=== PATIENT | male | born 1930 | race Caucasian/White ===

== ENCOUNTER 2016-11-23 19:48 | Inpatient (IN) | payer OTHER, MEDICARE ==
[2016-11-23 19:52] VITALS: BP 174/80; PULSE 80; RESP 18; TEMP 98.2; O2SAT 89
[2016-11-23 20:00] VITALS: O2SAT 95
[2016-11-23] MEDS ORDERED: SODIUM CHLORIDE 0.9% FLUSH 5 ML FLUSH IVF PRN (20:00)
--- NOTE | 2016-11-23 20:00 | PD ---
HPI Chief Complaint: Foreign Body Time Seen by Provider: 19:54 Travel History International Travel<30 days: No Contact w/Intl Traveler<30days: No Traveled to known affect area: No History of Present Illness HPI The patient is a 86-year-old male who presents to the emergency department via EMS after choking episode with hypoxia. According to EMS the patient was eating chocolate ground beef at home earlier today, when he developed choking. The family tried to perform the Heimlich maneuver on the patient unsuccessfully. EMS states when they arrived the patient's oxygen saturation was in the 70s and he was coughing. EMS states the patient's coughing has improved, however, he had to be placed on a nonrebreather prior to arrival secondary to hypoxia. The patient does have a history of dementia according to EMS. The patient is Anguillan-speaking and the history is obtained from a Anguillan -speaking emergency medicine die maintenance technician in the emergency department. The patient does complain of shortness of breath, denies any chest pain, nausea, vomiting, or abdominal pain. However, according to the EMT, the patient is a poor historian. [facility] Past Medical History Narrative Medical History of dementia Social History Tobacco Use: No Allergies-Medications (Allergen,Severity, Reaction): Coded Allergies: No Known Allergies (Unverified , 11/23/16) Reported Meds & Prescriptions Reported Meds & Active Scripts Active Reported Citalopram (Citalopram Hydrobromide) 20 Mg Tab 20 Mg PO DAILY Risperidone 1 Mg Tab 1 Mg PO DAILY Levothyroxine (Levothyroxine Sodium) 88 Mcg Tab 88 Mcg PO DAILY Warfarin 4 Mg Tab 4 Mg PO DAILY Metformin (Metformin HCl) 1,000 Mg Tab 1,000 Mg PO BIDPC With meals Metoprolol Tartrate 25 Mg Tab 25 Mg PO BID Namenda (Memantine) 10 Mg Tab 10 Mg PO BID Donepezil Hydrochloride 5 Mg Tab 10 Mg PO DAILY Review of Systems ROS Limitations: Clinical Condition, Poor Historian, Other: (history of dementia) Except as stated in HPI: all other systems reviewed are Neg Cardiovascular: No: Chest Pain or Discomfort Respiratory: Positive: Shortness of Breath Gastrointestinal: No: Nausea, Vomiting, Abdominal Pain Physical Exam Narrative GENERAL: Awake, alert, 86-year-old male who appears his stated age and does speak Anguillan to the ENT who translates. SKIN: Warm and dry. HEAD: Atraumatic. Normocephalic. EYES: Pupils equal and round. Pupils are 2 mm bilateral. ENT: No nasal bleeding or discharge. No visible blood in the posterior pharynx , however, unable to visualize the complete uvula. NECK: Trachea midline. No JVD. CARDIOVASCULAR: Regular rate and rhythm. No murmur appreciated. RESPIRATORY: Mild tachypnea with a respiratory rate of 22. Diminished breath sounds in the right and left face. GASTROINTESTINAL: Abdomen soft, slightly distended, non-tender. MUSCULOSKELETAL: No obvious deformities. No clubbing. No cyanosis. No edema. NEUROLOGICAL: Awake and alert. No obvious cranial nerve deficits. Motor grossly within normal limits. Normal speech. Patient does answer questions to the ENT, but does not know the current year, president and the [place], or location. PSYCHIATRIC: Unable to assess. Data Data Last Documented VS Vital Signs Date Time Temp Pulse Resp B/P Pulse Ox O2 Delivery O2 Flow Rate FiO2 11/23/16 20:11 98 Nasal Cannula 4 11/23/16 20:10 72 16 160/81 11/23/16 19:52 98.2 Orders Complete Blood Count With Diff (11/23/16 19:54) Comprehensive Metabolic Panel (11/23/16 19:54) B-Type Natriuretic Peptide (11/23/16 19:54) Act Partial Throm Time (Ptt) (11/23/16 19:54) Prothrombin Time / Inr (Pt) (11/23/16 19:54) Magnesium (Mg) (11/23/16 19:54) Ckmb (Isoenzyme) Profile (11/23/16 19:54) Troponin I (11/23/16 19:54) Arterial Blood Gas (Abg) (11/23/16 19:54) Blood Culture (11/23/16 19:54) Iv Access Insert/Monitor (11/23/16 19:54) Electrocardiogram (11/23/16 19:54) Ecg Monitoring (11/23/16 19:54) Oximetry (11/23/16 19:54) Oxygen Administration (11/23/16 19:54) Chest, Single Ap (11/23/16 19:54) Sodium Chloride 0.9% Flush (Ns Flush) (11/23/16 20:00) Lactic Acid (11/23/16 19:54) Ceftriaxone Inj (Rocephin Inj) (11/23/16 20:45) Azithromycin Inj (Zithromax Inj) (11/23/16 20:45) Furosemide Inj (Lasix Inj) (11/23/16 21:30) Admit Order (Ed Use Only) (11/23/16 21:54) Labs Laboratory Tests Test 11/23/16 11/23/16 20:02 20:15 Blood Gas Puncture Site RT RADIAL Blood Gas Patient Temperature 98.6 Blood Gas HCO3 21 mmol/L Blood Gas Base Excess -4.3 mmol/L Blood Gas Oxygen Saturation 91 % Arterial Blood pH 7.32 Arterial Blood Partial 41 mmHg Pressure CO2 Arterial Blood Partial 79 mmHG Pressure O2 Arterial Blood Oxygen Content 12.5 Vol % Arterial Blood 2.4 % Carboxyhemoglobin Arterial Blood Methemoglobin 1.5 % Blood Gas Hemoglobin 9.7 G/DL Oxygen Delivery Device NASAL CANNULA Blood Gas Liter Flow 4 L/M White Blood Count 9.7 TH/MM3 Red Blood Count 3.91 MIL/MM3 Hemoglobin 9.6 GM/DL Hematocrit 30.5 % Mean Corpuscular Volume 78.0 FL Mean Corpuscular Hemoglobin 24.5 PG Mean Corpuscular Hemoglobin 31.4 % Concent Red Cell Distribution Width 17.7 % Platelet Count 229 TH/MM3 Mean Platelet Volume 9.4 FL Neutrophils (%) (Auto) 74.7 % Lymphocytes (%) (Auto) 11.5 % Monocytes (%) (Auto) 12.0 % Eosinophils (%) (Auto) 1.3 % Basophils (%) (Auto) 0.5 % Neutrophils # (Auto) 7.2 TH/MM3 Lymphocytes # (Auto) 1.1 TH/MM3 Monocytes # (Auto) 1.2 TH/MM3 Eosinophils # (Auto) 0.1 TH/MM3 Basophils # (Auto) 0.1 TH/MM3 CBC Comment AUTO DIFF Differential Comment AUTO DIFF CONFIRMED Tear Drop Cells 1+ Ovalocytes 1+ Acanthocytes OCC Prothrombin Time 20.8 SEC Prothromb Time International 1.8 RATIO Ratio Activated Partial 33.1 SEC Thromboplast Time Sodium Level 136 MEQ/L Potassium Level 5.2 MEQ/L Chloride Level 103 MEQ/L Carbon Dioxide Level 23.9 MEQ/L Anion Gap 9 MEQ/L Blood Urea Nitrogen 43 MG/DL Creatinine 1.40 MG/DL Estimat Glomerular Filtration 48 ML/MIN Rate Random Glucose 162 MG/DL Lactic Acid Level 4.0 mmol/L Calcium Level 8.6 MG/DL Magnesium Level 1.6 MG/DL Total Bilirubin 0.5 MG/DL Aspartate Amino Transf 28 U/L (AST/SGOT) Alanine Aminotransferase 22 U/L (ALT/SGPT) Alkaline Phosphatase 202 U/L Total Creatine Kinase 78 U/L Troponin I 0.02 NG/ML B-Type Natriuretic Peptide 1437 PG/ML Total Protein 7.7 GM/DL Albumin 3.4 GM/DL MDM Medical Decision Making Medical Screen Exam Complete: Yes Emergency Medical Condition: Yes Medical Record Reviewed: Yes Interpretation(s) EKG reveals atrial fibrillation with a rate of 79. S1Q3. Nonspecific ST changes. Laboratory Tests Test 11/23/16 11/23/16 20:02 20:15 Blood Gas Puncture Site RT RADIAL Blood Gas Patient Temperature 98.6 Blood Gas HCO3 21 mmol/L Blood Gas Base Excess -4.3 mmol/L Blood Gas Oxygen Saturation 91 % Arterial Blood pH 7.32 Arterial Blood Partial 41 mmHg Pressure CO2 Arterial Blood Partial 79 mmHG Pressure O2 Arterial Blood Oxygen Content 12.5 Vol % Arterial Blood 2.4 % Carboxyhemoglobin Arterial Blood Methemoglobin 1.5 % Blood Gas Hemoglobin 9.7 G/DL Oxygen Delivery Device NASAL CANNULA Blood Gas Liter Flow 4 L/M White Blood Count 9.7 TH/MM3 Red Blood Count 3.91 MIL/MM3 Hemoglobin 9.6 GM/DL Hematocrit 30.5 % Mean Corpuscular Volume 78.0 FL Mean Corpuscular Hemoglobin 24.5 PG Mean Corpuscular Hemoglobin 31.4 % Concent Red Cell Distribution Width 17.7 % Platelet Count 229 TH/MM3 Mean Platelet Volume 9.4 FL Neutrophils (%) (Auto) 74.7 % Lymphocytes (%) (Auto) 11.5 % Monocytes (%) (Auto) 12.0 % Eosinophils (%) (Auto) 1.3 % Basophils (%) (Auto) 0.5 % Neutrophils # (Auto) 7.2 TH/MM3 Lymphocytes # (Auto) 1.1 TH/MM3 Monocytes # (Auto) 1.2 TH/MM3 Eosinophils # (Auto) 0.1 TH/MM3 Basophils # (Auto) 0.1 TH/MM3 CBC Comment AUTO DIFF Differential Comment AUTO DIFF CONFIRMED Tear Drop Cells 1+ Ovalocytes 1+ Acanthocytes OCC Prothrombin Time 20.8 SEC Prothromb Time International 1.8 RATIO Ratio Activated Partial 33.1 SEC Thromboplast Time Sodium Level 136 MEQ/L Potassium Level 5.2 MEQ/L Chloride Level 103 MEQ/L Carbon Dioxide Level 23.9 MEQ/L Anion Gap 9 MEQ/L Blood Urea Nitrogen 43 MG/DL Creatinine 1.40 MG/DL Estimat Glomerular Filtration 48 ML/MIN Rate Random Glucose 162 MG/DL Lactic Acid Level 4.0 mmol/L Calcium Level 8.6 MG/DL Magnesium Level 1.6 MG/DL Total Bilirubin 0.5 MG/DL Aspartate Amino Transf 28 U/L (AST/SGOT) Alanine Aminotransferase 22 U/L (ALT/SGPT) Alkaline Phosphatase 202 U/L Total Creatine Kinase 78 U/L Troponin I 0.02 NG/ML B-Type Natriuretic Peptide 1437 PG/ML Total Protein 7.7 GM/DL Albumin 3.4 GM/DL Last Impressions Chest X-Ray 11/23/161953 Signed Impressions: Service Date/Time: Wednesday, November 23, 2016 20:06 - CONCLUSION: Mild left base consolidation and suspected small effusion. Willie Fernandes MD Differential Diagnosis Differential diagnosis includes aspiration pneumonia, aspiration, esophageal food bolus impaction, pneumonia, congestive heart failure, pleural effusion, pulmonary embolism, acute coronary syndrome, sepsis. Narrative Course IV was established, labs are drawn and sent, and the patient was placed on cardiac telemetry monitoring and continuous pulse oximetry monitoring. EKG was ordered and interpreted. Chest x-ray was obtained. Room air ABG was obtained. The patient was then placed on oxygen. Blood cultures and lactic acid were sent to lab. The patient's daughter and arrived, is able to obtain a better history from the family. The patient does have a history of dementia and congestive heart failure after he had open-heart surgery. The patient was eating earlier tonight when he appeared to choke and cough. The patient's primary physician is Dr. Ronald Alfonso. Chest x-ray reveals questionable consolidation as well as pleural effusion. ABG revealed a PO2 of 79 on 4 L, patient is not on oxygen at home according to the family. The patient did appear much more comfortable on oxygen, sitting upright, and his coughing had resolved. Family does state the patient is on antibiotic for his recent coughing. The patient's BNP is elevated greater than 1400, lactic acid is elevated at 4.0 , may be secondary to hypoxia. Patient was administered Lasix 40 mg intravenously, will be admitted for congestive heart failure, hypoxia, and aspiration. The patient has [employer], is followed by Dr. Alfonso, [facility] Physician Communication Physician Communication [facility] as patient has [employer]. I discussed the patient with Dr. Cartagena who agrees with admission. Diagnosis Primary Impression: Congestive heart failure Qualified Code: I50.9 - Acute on chronic congestive heart failure, unspecified congestive heart failure type Additional Impressions: Aspiration into airway Qualified Code: T17.908A - Aspiration into airway, initial encounter Hypoxia Admitting Information Admitting Physician Requests: Admit Condition: Stable Attila Marie MD Nov 23, 2016 20:00
[2016-11-23 20:10] VITALS: BP 160/81; PULSE 72; RESP 16; O2SAT 98
[2016-11-23 20:11] VITALS: O2SAT 98
[2016-11-23 20:13] LABS: BLOOD GAS BASE EXCESS -4.3 mmol/L (-2-2); BLOOD GAS CARBOXYHEMOGLOBIN 2.4 % (0-4); BLOOD GAS HCO3 21 mmol/L (22-26); BLOOD GAS METHEMOGLOBIN 1.5 % (0-2); BLOOD GAS O2 HGB SATURATION 91 % (90-100); BLOOD GAS OXYGEN CONTENT 12.5 Vol % (12.0-20.0); BLOOD GAS PCO2 41 mmHg (38-42); BLOOD GAS PO2 79 mmHG (61-120); BLOOD GAS TOTAL HGB 9.7 G/DL (12.0-16.0); CRITICAL VALUE NO; DRAW SITE RT RADIAL; LITER FLOW 4 L/M; NUMBER OF ARTERIAL PUNCTURES 1; OXYGEN DEVICE NASAL CANNULA; STAT YES; TEMP CORR TO 98.6; ULNAR PULSE PRESENT
--- NOTE | 2016-11-23 20:28 | RADRPT ---
EXAM DATE/TIME: 11/23/2016 20:06 [facility] COMPARISON: No previous studies available for comparison. INDICATIONS : Shortness of breath MEDICAL HISTORY : None. SURGICAL HISTORY : CABG. ENCOUNTER: Initial ACUITY: 1 day PAIN SCORE: Non-responsive. LOCATION: Bilateral chest FINDINGS: Mild consolidation seen left lung base. There's probably a small left pleural effusion. Right lung cl ear. No pneumothorax. Heart size upper limits of normal. Patient has had previous median sternotomy. CONCLUSION: Mild left base consolidation and suspected small effusion. Willie Fernandes MD on November 23, 2016 at 20:26 Board Certified Radiologist. This report was verified electronically.
[2016-11-23 20:29] LABS: AUTOMATED NEUTROPHIL # 7.2 TH/MM3 (1.8-7.7); BASOPHIL # 0.1 TH/MM3 (0-0.2); BASOPHIL % 0.5 % (0.0-2.0); EOSINOPHIL # 0.1 TH/MM3 (0-0.4); EOSINOPHIL % 1.3 % (0.0-4.0); HEMATOCRIT 30.5 % (39.0-51.0); LYMPH % 11.5 % (9.0-44.0); LYMPHOCYTE # 1.1 TH/MM3 (1.0-4.8); MEAN CORPUSCULAR HEMOGLOBIN 24.5 PG (27.0-34.0); MEAN CORPUSCULAR HGB CONC 31.4 % (32.0-36.0); NEUT % 74.7 % (16.0-70.0); PLATELET COUNT 229 TH/MM3 (150-450); RED BLOOD COUNT 3.91 MIL/MM3 (4.50-5.90); RED CELL DISTRIBUTION WIDTH 17.7 % (11.6-17.2); WHITE BLOOD COUNT 9.7 TH/MM3 (4.0-11.0)
[2016-11-23 20:30] LABS: HEMO FLAGS AUTO DIFF
[2016-11-23] MEDS ORDERED: AZITHROMYCIN INJ 500 MG in SODIUM CHLOR 0.9% 250 ML INJ 250 ML IV ONE (20:45)
[2016-11-23] MEDS ORDERED: cefTRIAXone INJ 1,000 MG in SODIUM CHLORIDE 0.9% INJ 100 ML IV ONE (20:45)
[2016-11-23 20:54] LABS: APTT (PATIENT) 33.1 SEC (24.3-30.1); INTERNATIONAL NORMALIZED RATIO 1.8 RATIO; PROTHROMBIN TIME - PATIENT 20.8 SEC (9.8-11.6)
[2016-11-23 21:02] LABS: ALKALINE PHOSPHATASE 202 U/L (45-117); ALT (GPT) 22 U/L (12-78); ANION GAP 9 MEQ/L (5-15); AST (GOT) 28 U/L (15-37); BICARBONATE 23.9 MEQ/L (21.0-32.0); BLOOD UREA NITROGEN 43 MG/DL (7-18); CHLORIDE 103 MEQ/L (98-107); GLOMERULAR FILTRATION RATE 48 ML/MIN (>89); MAGNESIUM 1.6 MG/DL (1.5-2.5); POTASSIUM 5.2 MEQ/L (3.5-5.1); SODIUM (NA) 136 MEQ/L (136-145); TOTAL BILIRUBIN ADULT 0.5 MG/DL (0.2-1.0)
[2016-11-23 21:04] LABS: CREATINE KINASE 78 U/L (39-308)
[2016-11-23 21:23] LABS: ACANTHOCYTES OCC (NORMAL)
[2016-11-23 21:24] LABS: OVALOCYTES 1+ (NORMAL); SCAN/DIFF AUTO DIFF CONFIRMED; TEARDROP RBCS 1+ (NORMAL)
[2016-11-23] MEDS ORDERED: FUROSEMIDE 40 MG/4 ML VIAL IV PUSH ONE (21:30)
[2016-11-23] MEDS ORDERED: LEVO88TA2 PO (21:31)
[2016-11-23] MEDS ORDERED: RISP1TAB2 PO (21:31)
[2016-11-23] MEDS ORDERED: DONE1TAB90 PO (21:31)
[2016-11-23] MEDS ORDERED: METO25TA3 PO (21:31)
[2016-11-23] MEDS ORDERED: METF1000 PO (21:31)
[2016-11-23] MEDS ORDERED: CITA20TA4 PO (21:31)
[2016-11-23] MEDS ORDERED: NAME10TA PO (21:31)
[2016-11-23] MEDS ORDERED: WARF-20 PO (21:31)
[2016-11-23 22:18] VITALS: BP 155/80; PULSE 80; RESP 18; O2SAT 100
--- NOTE | 2016-11-23 22:24 | EKG ---
Date Performed: 11/23/2016 Time Performed: 20:07:13 PTAGE: 86 years EKG: ATRIAL FIBRILLATION INDETERMINATE AXIS PATTERN CONSISTENT WITH PULMONARY DISEASE MODERATE S T DEPRESSION ABNORMAL ECG NO PREVIOUS TRACING DOCTOR: Guido Crane Interpretating Date/Time 11/23/2016 22:21:47
[2016-11-23] MEDS ORDERED: NALOXONE HCL 0.4 MG/ML AMP IV PRN (22:30)
[2016-11-23] MEDS ORDERED: SODIUM CHLORIDE 0.9% FLUSH 5 ML FLUSH FLUSH PRN (22:30)
[2016-11-23] MEDS ORDERED: ONDANSETRON HCL 4 MG/2 ML VIAL IVP PRN (22:30)
[2016-11-23 23:45] VITALS: BP 148/72; PULSE 72; RESP 18; O2SAT 100
[2016-11-24] VITALS (10 sets, daily range): BP systolic 105–158; BP diastolic 54–93; PULSE 65–112; RESP 18–20; TEMP 96.2–97.2; O2SAT 91–98
[2016-11-24 02:55] LABS: AUTOMATED NEUTROPHIL # 7.5 TH/MM3 (1.8-7.7); BASOPHIL # 0.1 TH/MM3 (0-0.2); BASOPHIL % 0.6 % (0.0-2.0); EOSINOPHIL % 0.3 % (0.0-4.0); HEMATOCRIT 29.4 % (39.0-51.0); LYMPH % 7.7 % (9.0-44.0); LYMPHOCYTE # 0.7 TH/MM3 (1.0-4.8); MEAN CELL VOLUME 76.9 FL (80.0-100.0); MEAN CORPUSCULAR HEMOGLOBIN 24.6 PG (27.0-34.0); MONO % 10.9 % (0.0-8.0); NEUT % 80.5 % (16.0-70.0); PLATELET COUNT 198 TH/MM3 (150-450); RED BLOOD COUNT 3.82 MIL/MM3 (4.50-5.90); RED CELL DISTRIBUTION WIDTH 17.4 % (11.6-17.2); WHITE BLOOD COUNT 9.4 TH/MM3 (4.0-11.0)
[2016-11-24 02:56] LABS: HEMO FLAGS AUTO DIFF
--- NOTE | 2016-11-24 03:07 | HHI.HP ---
[facility] Service [facility] Primary Care Physician Ronald Alfonso MD (Paul) Admission Diagnosis congestive heart failure, hypoxia, lactic acidosis Diagnoses: Chief Complaint: not able to give specific complaints Travel History International Travel<30 Days: No Contact w/Intl Traveler <30 Da: No Traveled to Known Affected Are: No History of Present Illness History from ER physician communication, and review of medical records. Patient is elderly gentleman with baseline dementia. Patient was brought in by from EMS after having had choking episode. There was also reported hypoxia. The family tried to perform the Heimlich maneuver. Per ER report, EMS stated to them that patient's O2 sat was in the 70s and he was coughing a lot upon their arrival. This cough had improved and he was placed on nonrebreather prior to arrival to ER. Patient is Arabic-speaking and also have dementia. History from patient himself is thus limited. However, in the emergency room, with the investigative reporter, patient did complain of shortness of breath. He however denied any chest pains/nausea/vomiting/ abdominal pains. Similarly, when I used collection manager and ask patient regarding his symptoms , patient denies any chest pain/nausea/vomiting/diarrhea/shortness of breath. He denies any abdominal pains. Denies any blood in his stool or urine. Review of Systems ROS Limitations: Poor Historian Except as stated in HPI: all other systems reviewed are Neg Review of system is somewhat unreliable since patient does have dementia and seems to answer no to all questions Past Family Social History Past Medical History Dementia Diabetes Chronic anticoagulation on Coumadin Hypothyroidism Parkinson's likelywith noted resting tremors Possible atrial fibrillationbased on his medications list Past Surgical History Unknown. Reported Medications Patient's medications listed in EMRreviewed Allergies: Coded Allergies: No Known Allergies (Unverified , 11/23/16) Family History Unknown. Social History Per EMR: No history of tobacco abuse/alcohol abuse/drug abuse. Physical Exam Vital Signs Vital Signs Date Time Temp Pulse Resp B/P Pulse Ox O2 Delivery O2 Flow Rate FiO2 11/24/16 00:45 66 2/23/17 00:32 72 11/24/16 00:24 97.2 112 18 133/82 91 11/23/16 23:45 72 18 148/72 100 11/23/16 22:18 80 18 155/80 100 11/23/16 20:11 98 Nasal Cannula 4 11/23/16 20:11 98 Nasal Cannula 4 11/23/16 20:10 72 16 160/81 98 Nasal Cannula 4 11/23/16 20:04 98 94 11/23/16 20:00 95 Nasal Cannula 4.00 11/23/16 19:52 98.2 80 18 174/80 89 Physical Exam GENERAL: This is an elderly gentleman, not in acute distress. Has a blank stare. Noted resting tremors and intention tremors. SKIN: No rashes, ecchymoses or lesions. Cool and dry. HEAD: Atraumatic. Normocephalic. No temporal or scalp tenderness. EYES: No scleral icterus. No injection or drainage. ENT: Nose without bleeding, purulent drainage or septal hematoma. Airway patent. NECK: Trachea midline. No JVD CARDIOVASCULAR: Regular rate and rhythm without murmurs, gallops, or rubs. RESPIRATORY: Clear to auscultation. Breath sounds equal bilaterally. No wheezes , rales, or rhonchi. GASTROINTESTINAL: Abdomen soft, non-tender, nondistended. No guarding. MUSCULOSKELETAL: Extremities without clubbing, cyanosis, or edema. No calf tenderness. NEUROLOGICAL: Awake, but seems confused, has a blank stare and does not comprehend the situation. Moving all 4 limbs. No focal motor deficit. Normal speech. Laboratory Laboratory Tests Test 11/23/16 11/23/16 11/24/16 20:02 20:15 02:38 Blood Gas Puncture Site RT RADIAL Blood Gas Patient Temperature 98.6 Blood Gas HCO3 21 Blood Gas Base Excess -4.3 Blood Gas Oxygen Saturation 91 Arterial Blood pH 7.32 Arterial Blood Partial 41 Pressure CO2 Arterial Blood Partial 79 Pressure O2 Arterial Blood Oxygen Content 12.5 Arterial Blood 2.4 Carboxyhemoglobin Arterial Blood Methemoglobin 1.5 Blood Gas Hemoglobin 9.7 Oxygen Delivery Device NASAL CANNULA Blood Gas Liter Flow 4 White Blood Count 9.7 9.4 Red Blood Count 3.91 3.82 Hemoglobin 9.6 9.4 Hematocrit 30.5 29.4 Mean Corpuscular Volume 78.0 76.9 Mean Corpuscular Hemoglobin 24.5 24.6 Mean Corpuscular Hemoglobin 31.4 32.0 Concent Red Cell Distribution Width 17.7 17.4 Platelet Count 229 198 Mean Platelet Volume 9.4 8.9 Neutrophils (%) (Auto) 74.7 80.5 Lymphocytes (%) (Auto) 11.5 7.7 Monocytes (%) (Auto) 12.0 10.9 Eosinophils (%) (Auto) 1.3 0.3 Basophils (%) (Auto) 0.5 0.6 Neutrophils # (Auto) 7.2 7.5 Lymphocytes # (Auto) 1.1 0.7 Monocytes # (Auto) 1.2 1.0 Eosinophils # (Auto) 0.1 0.0 Basophils # (Auto) 0.1 0.1 CBC Comment AUTO DIFF AUTO DIFF Differential Comment AUTO DIFF CONFIRMED Tear Drop Cells 1+ Ovalocytes 1+ Acanthocytes OCC Prothrombin Time 20.8 Prothromb Time International 1.8 Ratio Activated Partial 33.1 Thromboplast Time Sodium Level 136 Potassium Level 5.2 Chloride Level 103 Carbon Dioxide Level 23.9 Anion Gap 9 Blood Urea Nitrogen 43 Creatinine 1.40 Estimat Glomerular Filtration 48 Rate Random Glucose 162 Lactic Acid Level 4.0 Calcium Level 8.6 Magnesium Level 1.6 Total Bilirubin 0.5 Aspartate Amino Transf 28 (AST/SGOT) Alanine Aminotransferase 22 (ALT/SGPT) Alkaline Phosphatase 202 Total Creatine Kinase 78 Troponin I 0.02 B-Type Natriuretic Peptide 1437 Total Protein 7.7 Albumin 3.4 Date/Time Procedure Status Source Growth 11/23/16 20:15 Aerobic Blood Culture Received Blood Peripheral Pending 11/23/16 20:15 Anaerobic Blood Culture Received Blood Peripheral Pending Result Diagram: 11/24/16 0238 11/23/162014 Imaging Last 48 hours Impressions Chest X-Ray 11/23/161953 Signed Impressions: Service Date/Time: Wednesday, November 23, 2016 20:06 - CONCLUSION: Mild left base consolidation and suspected small effusion. Willie Fernandes MD Assessment and Plan Assessment and Plan Impression: Witnessed choking episodeHeimlich maneuver performed by family members. Hypoxia upon EMS arrival with coughing episodes. Resolved by time of arrival to ER. Pneumoniawith left pleural effusions Elevated BNP Lactic acid acidosis Subtherapeutic INR Dementia Diabetes Chronic anticoagulation on Coumadin Hypothyroidism Parkinson's likelywith noted resting tremors Possible atrial fibrillationbased on his medications list Plan: Oxygen supplementation. Patient received Rocephin and azithromycin in ER. Will continue same. Echocardiogram in a.m. Serial cardiac enzymes and EKGs. We'll repeat a lactic acid level in a.m. Likely this is due to heart failure. Patient's abdomen is benign on exam. Patient is not complaining of any pain either. Swallow evaluation. Nothing by mouth. Continue home dose of Coumadin. We'll use Lovenox therapeutic dose to overlap. Will need more collateral information from family members. DVT prophylaxison Coumadin. GI prophylaxison pantoprazole. Physician Certification 2 Midnight Certification Type: Admission for Inpatient Services Order for Inpatient Services The services are ordered in accordance with Medicare regulations or non- Medicare payer requirements, as applicable. In the case of services not specified as inpatient-only, they are appropriately provided as inpatient services in accordance with the 2-midnight benchmark. Estimated LOS (days): 2 days is the estimated time the patient will need to remain in the hospital, assuming treatment plan goals are met and no additional complications. Post-Hospital Plan: Home Antonino Cartagena MD Nov 24, 2016 03:07
[2016-11-24 03:18] LABS: BICARBONATE 25.8 MEQ/L (21.0-32.0); POTASSIUM 4.7 MEQ/L (3.5-5.1)
[2016-11-24] MEDS: DEXT 5%-NACL 0.9% 1000 ML INJ 1,000 ML IV SCH (04:04)
[2016-11-24 04:14] LABS: OVALOCYTES 1+ (NORMAL); SCAN/DIFF AUTO DIFF CONFIRMED
[2016-11-24] MEDS ORDERED: GLUCAGON 1 MG/ML VIAL OTHER PRN ×2 (04:15→13:45)
[2016-11-24] MEDS ORDERED: DEXTROSE 50% IN WATER 50 ML VIAL(D50) IV PUSH PRN ×2 (04:15→13:45)
[2016-11-24] MEDS: LEVOTHYROXINE SODIUM 88 MCG TAB PO SCH (05:59)
[2016-11-24] MEDS: SODIUM CHLORIDE 0.9% FLUSH 5 ML FLUSH FLUSH SCH ×2 (09:00→21:19)
[2016-11-24] MEDS ORDERED: ENOXAPARIN SODIUM 100 MG/ML SYRINGE SQ SCH (09:00)
[2016-11-24] MEDS ORDERED: ENOXAPARIN SODIUM 40 MG/0.4 ML SYRINGE SQ SCH (09:00)
[2016-11-24] MEDS: MEMANTINE HCL 10 MG TAB PO SCH ×2 (10:11→21:19)
[2016-11-24] MEDS: METOPROLOL TARTRATE 25 MG TAB PO SCH ×2 (10:11→21:19)
[2016-11-24] MEDS: PANTOPRAZOLE SOD 40 MG DELAYED RELEASE TAB PO SCH (10:11)
[2016-11-24] MEDS: CITALOPRAM HYDROBROMIDE 20 MG TAB PO SCH (10:11)
[2016-11-24] MEDS: DONEPEZIL HCL 5 MG TAB PO SCH (10:12)
[2016-11-24 11:21] LABS: PROTHROMBIN TIME - PATIENT 23.1 SEC (9.8-11.6)
[2016-11-24] MEDS: risperiDONE 1 MG TAB PO SCH (11:28)
--- NOTE | 2016-11-24 12:30 | HHI.PR ---
Subjective Remarks Follow up on choking and hypoxia. Patient Hungarian speaking only - daughter at bedside acting as circle shear operator per patient request. No further episodes since admission. Feeling well. Denies any complaints of chest pain or shortness of breath. Had an episode of choking with drinking liquids 1-2 yrs ago. (+)BM yesterday. Objective Vitals Vital Signs Date Time Temp Pulse Resp B/P Pulse Ox O2 Delivery O2 Flow Rate FiO2 11/24/16 10:30 79 11/24/16 08:10 96.2 81 18 158/79 94 11/24/16 04:24 96.7 70 18 119/54 91 11/24/16 00:45 66 11/24/16 00:32 72 11/24/16 00:24 97.2 112 18 133/82 91 11/23/16 23:45 72 18 148/72 100 11/23/16 22:18 80 18 155/80 100 11/23/16 20:11 98 Nasal Cannula 4 11/23/16 20:11 98 Nasal Cannula 4 11/23/16 20:10 72 16 160/81 98 Nasal Cannula 4 11/23/16 20:04 98 94 11/23/16 20:00 95 Nasal Cannula 4.00 11/23/16 19:52 98.2 80 18 174/80 89 Result Diagram: 11/24/1623711/24/16237 Imaging Last 48 hours Impressions Chest X-Ray 11/23/161953 Signed Impressions: Service Date/Time: Wednesday, November 23, 2016 20:06 - CONCLUSION: Mild left base consolidation and suspected small effusion. Willie Fernandes MD Objective Remarks GENERAL: This is an elderly gentleman, not in acute distress. Has a blank stare. Noted resting tremors and intention tremors. SKIN: No rashes, ecchymoses or lesions. Cool and dry. HEAD: Atraumatic. Normocephalic. No temporal or scalp tenderness. EYES: No scleral icterus. No injection or drainage. ENT: Nose without bleeding, purulent drainage or septal hematoma. Airway patent. NECK: Trachea midline. No JVD CARDIOVASCULAR: Regular rate and rhythm without murmurs, gallops, or rubs. RESPIRATORY: Clear to auscultation. Breath sounds equal bilaterally. No wheezes , rales, or rhonchi. GASTROINTESTINAL: Abdomen soft, non-tender, nondistended. No guarding. MUSCULOSKELETAL: Extremities without clubbing, cyanosis, or edema. No calf tenderness. NEUROLOGICAL: Awake, but seems confused, has a blank stare and does not comprehend the situation. Moving all 4 limbs. No focal motor deficit. Normal speech. Medications and IVs Last 24 hours Impressions Chest X-Ray 11/23/161953 Signed Impressions: Service Date/Time: Wednesday, November 23, 2016 20:06 - CONCLUSION: Mild left base consolidation and suspected small effusion. Willie Fernandes MD A/P Assessment and Plan 86yo male with Alzheimer's dementia, DM, hypothyroidism and atrial fibrillation with witnessed choking episode and hypoxia. Choking episode with hypoxia - witnessed while being fed hamburger meatHeimlich maneuver performed by family members, no improvement. Hypoxia resolved by time of arrival to ED. - r/o cardiac etiology - BNP elevated, Echo pending - Leonora cycled and negative x 3 - swallow evaluation by ST pending - PT eval/tx Lactic acidosis - resolved, 4.0 -> 1.3 - likely secondary to above, choking/hypoxia episode LISHA - resolved - 1.40 -> 1.24 - unknown baseline Pneumoniawith left pleural effusions - continue on IV Rocephin and Azithromycin - oxygen supplementation Alzheimer's - continue on current home meds Chronic anticoagulation on Coumadin with h/o atrial fibrillation - rate controlled, continue on BB - INR therapeutic - d/c Lovenox - c/w Coumadin - pharmacy consult to monitor Coumadin, PT/INR Diabetes - accuchecks - ISS - obtain A1c Hypothyroidism - c/w home Synthroid dose - obtain TSH level DVT prophylaxison Coumadin. GI prophylaxison pantoprazole. Written by Mireya Parra, acting as scribe for Dr. Landrum on 11/24/16 at 12: 29. Attending Statement The documentation accurately reflects the work performed [id number] by me, Dr. Landrum on 11/24/16 at 12:29. Mireya Parra Nov 24, 2016 12:29 Tomy Landrum MD Nov 25, 2016 08:40
[2016-11-24] MEDS: cefTRIAXone INJ 1,000 MG in SODIUM CHLORIDE 0.9% INJ 100 ML IV SCH (12:55)
[2016-11-24] MEDS: AZITHROMYCIN INJ 500 MG in SODIUM CHLOR 0.9% 250 ML INJ 250 ML IV SCH (13:58)
[2016-11-24] MEDS ORDERED: WARFARIN SOD 4 MG TAB PO SCH (16:00)
[2016-11-24] MEDS: INSULIN ASPART SUPPLEMENTAL SCALE SQ SCH ×2 (16:00→21:00)
--- NOTE | 2016-11-24 18:52 | EKG ---
Date Performed: 11/24/2016 Time Performed: 09:09:00 PTAGE: 86 years EKG: PROBABLE ATRIAL FIBRILLATION WITH ABERRANT CONDUCTION OR VENTRICULAR PREMATURE COMPLEXES [place] N[address] DEPRESSION ABNORMAL RHYTHM ECG PREVIOUS TRACING : 11/24/2016 01.30 Compared to prior tracing no significant change DOCTOR: Guido Crane Interpretating Date/Time 11/24/2016 18:50:59
--- NOTE | 2016-11-24 19:44 | EKG ---
Date Performed: 11/24/2016 Time Performed: 01:30:58 PTAGE: 86 years EKG: PROBABLE ATRIAL FIBRILLATION MARKED RIGHT AXIS DEVIATION PROLONGED QT INTERVAL ABNORMAL ECG PREVIOUS TRACING : 11/23/2016 20.07 Compared to prior tracing no significant change DOCTOR: Guido Crane Interpretating Date/Time 11/24/2016 19:42:42
[2016-11-25] MEDS: cefTRIAXone INJ 1,000 MG in SODIUM CHLORIDE 0.9% INJ 100 ML IV SCH ×2 (00:22→10:43)
[2016-11-25 01:53] VITALS: BP 158/98; PULSE 89; RESP 18; O2SAT 94
[2016-11-25] MEDS: DEXT 5%-NACL 0.9% 1000 ML INJ 1,000 ML IV SCH (03:19)
[2016-11-25] MEDS: LEVOTHYROXINE SODIUM 88 MCG TAB PO SCH (06:13)
[2016-11-25] MEDS: INSULIN ASPART SUPPLEMENTAL SCALE SQ SCH ×2 (06:16→11:00)
[2016-11-25 07:00] VITALS: BP 150/97; PULSE 78; RESP 19; TEMP 97.3; O2SAT 100
[2016-11-25 07:47] LABS: INTERNATIONAL NORMALIZED RATIO 1.9 RATIO; PROTHROMBIN TIME - PATIENT 21.9 SEC (9.8-11.6)
[2016-11-25 07:48] LABS: AUTOMATED NEUTROPHIL # 5.5 TH/MM3 (1.8-7.7); BASOPHIL % 0.7 % (0.0-2.0); EOSINOPHIL # 0.1 TH/MM3 (0-0.4); EOSINOPHIL % 1.1 % (0.0-4.0); HEMATOCRIT 29.5 % (39.0-51.0); LYMPH % 9.2 % (9.0-44.0); LYMPHOCYTE # 0.7 TH/MM3 (1.0-4.8); MEAN CELL VOLUME 77.1 FL (80.0-100.0); MEAN CORPUSCULAR HEMOGLOBIN 24.3 PG (27.0-34.0); MEAN CORPUSCULAR HGB CONC 31.5 % (32.0-36.0); MONO % 11.9 % (0.0-8.0); NEUT % 77.1 % (16.0-70.0); PLATELET COUNT 185 TH/MM3 (150-450); RED BLOOD COUNT 3.83 MIL/MM3 (4.50-5.90); RED CELL DISTRIBUTION WIDTH 16.9 % (11.6-17.2); WHITE BLOOD COUNT 7.1 TH/MM3 (4.0-11.0)
[2016-11-25] MEDS: CITALOPRAM HYDROBROMIDE 20 MG TAB PO SCH (07:56)
[2016-11-25] MEDS: risperiDONE 1 MG TAB PO SCH (07:56)
[2016-11-25] MEDS: PANTOPRAZOLE SOD 40 MG DELAYED RELEASE TAB PO SCH (07:56)
[2016-11-25] MEDS: MEMANTINE HCL 10 MG TAB PO SCH (07:56)
[2016-11-25] MEDS: METOPROLOL TARTRATE 25 MG TAB PO SCH (07:56)
[2016-11-25] MEDS: SODIUM CHLORIDE 0.9% FLUSH 5 ML FLUSH FLUSH SCH (07:56)
[2016-11-25] MEDS: DONEPEZIL HCL 5 MG TAB PO SCH (07:56)
[2016-11-25 07:58] LABS: HEMO FLAGS AUTO DIFF
--- NOTE | 2016-11-25 08:33 | EC ---
Study Study Date:11/24/2016 STUDY CONCLUSIONS SUMMARY - Left ventricle: The cavity size was normal. Wall thickness was increased in a pattern of mild LVH. There was concentric hypertrophy. Systolic function was probably normal. The estimated ejection fraction was in the range of 50% to 55%. Although no diagnostic regional wall motion abnormality was identified, this possibility cannot be completely excluded on the basis of this study. The study is not technically sufficient to allow evaluation of LV diastolic function. - Aortic valve: A bioprosthesis was present. There was no stenosis. Mean gradient: 5mm Hg (S). - Mitral valve: Moderate regurgitation. - Left atrium: The atrium was mildly dilated. - Right ventricle: The cavity size was mildly dilated. Systolic function was mildly reduced. - Tricuspid valve: Moderate regurgitation. - Pulmonary arteries: PA peak pressure: 78mm Hg (S). If LV function is below 40, please consider prescribing an ACEI or ARB or document rationale for non-use. PROCEDURE DATA STUDY STATUS: Elective. Procedure: Transthoracic echocardiography. Image quality was good. Scanning was performed from the parasternal, apical, and subcostal acoustic windows. Study completion: The patient tolerated the procedure well. Transthoracic echocardiography. M-mode, complete 2D, complete spectral Doppler, and color Doppler. Weight: Weight: 186.6lb. Patient status: Inpatient. CARDIAC ANATOMY LEFT VENTRICLE: The cavity size was normal. Wall thickness was increased in a pattern of mild LVH. There was concentric hypertrophy. Systolic function was probably normal. The estimated ejection fraction was in the range of 50% to 55%. Although no diagnostic regional wall motion abnormality was identified, this possibility cannot be completely excluded on the basis of this study. The study is not technically sufficient to allow evaluation of LV diastolic function. AORTIC VALVE: Poorly visualized. A bioprosthesis was present. Doppler: There was no stenosis. No significant regurgitation. Valve area: 1.28cm^2(VTI). Valve area: 1.08cm^2 (Vmax). Mean gradient: 5mm Hg (S). MITRAL VALVE: The valve appears to be grossly normal. Doppler: There was no evidence for stenosis. Moderate regurgitation. Peak gradient: 9mm Hg (D). LEFT ATRIUM: The atrium was mildly dilated. RIGHT VENTRICLE: The cavity size was mildly dilated. Systolic function was mildly reduced. PULMONIC VALVE: Poorly visualized. TRICUSPID VALVE: The valve appears to be grossly normal. Doppler: There was no evidence for stenosis. Moderate regurgitation. PERICARDIUM: There was no pericardial effusion. Patient weight: 186.6lb _Ejection fraction:_ 65-75% _Fractional shortening:_ 32% up to 5Kg 5-11.5Kg 11.6-22.9Kg 23-45Kg 45-57Kg Aortic Root 7-13 <17 13-22 17-27 17-27 LA diam 6-13 <23 24-38 33-47 37-40 RVID 10-17 7-15 7-15 7-18 8-17 LVIDd 12-22 <32 24-38 33-47 37-40 LVPW 2-4 3-6 5-7 6-8 7-8 IVS 2-4 3-6 5-7 6-8 7-8 BASIC MEASUREMENTS ADULT NORMAL Left ventricle LV internal dimension, ED, chordal level, *35.5 mm 43-52 PLAX LV internal dimension, ES, chordal level, 30.4 mm 23-38 PLAX Fractional shortening, chordal level, PLAX *14 % >29 LV posterior wall thickness, ED 12.8 mm IVS/LVPW ratio, ED 1 <1.3 Ventricular septum Septal thickness, ED 12.8 mm Aorta Root diameter, ED 35 mm Left atrium Anterior-posterior dimension 44 mm DOPPLER MEASUREMENTS ADULT NORMAL Main pulmonary artery Pressure, S *78 mm Hg =30 Aortic valve Peak velocity, S 147 cm/s Mean velocity, S 104 cm/s VTI, S 25.4 cm Mean gradient, S 5 mm Hg Valve area, VTI 1.28 cm^2 Valve area, Vmax 1.08 cm^2 Mitral valve Peak E-wave velocity 148 cm/s Deceleration time *134 ms 150-230 Peak gradient, D 9 mm Hg Tricuspid valve Regurgitant peak velocity 398 cm/s Peak RV-RA gradient, S 63 mm Hg Maximal regurgitant velocity 398 cm/s Right ventricle RV pressure, S *78 mm Hg <30 Pulmonic valve Peak velocity, S 28.6 cm/s LEGEND: Mean values are shown as u=mean value. Asterisk (*) abebe values outside specified normal range. Prepared and signed by Guido Crane [id number]
[2016-11-25 08:34] LABS: ANION GAP 9 MEQ/L (5-15); BICARBONATE 25.8 MEQ/L (21.0-32.0); BLOOD UREA NITROGEN 27 MG/DL (7-18); CHLORIDE 100 MEQ/L (98-107); FERRITIN 23 NG/ML (26-388); GLOMERULAR FILTRATION RATE 79 ML/MIN (>89); MAGNESIUM 1.6 MG/DL (1.5-2.5); POTASSIUM 3.9 MEQ/L (3.5-5.1); SODIUM (NA) 135 MEQ/L (136-145); TRANSFERRIN IRON PROFILE 312 MG/DL (200-360)
[2016-11-25 08:43] LABS: KERATOCYTES OCC (NORMAL); OVALOCYTES 1+ (NORMAL); PLATELET ESTIMATE SMEAR NORMAL (NORMAL); PLATELET MORPHOLOGY NORMAL (NORMAL); SCAN/DIFF AUTO DIFF CONFIRMED
[2016-11-25 11:48] VITALS: PULSE 63
[2016-11-25] MEDS: AZITHROMYCIN INJ 500 MG in SODIUM CHLOR 0.9% 250 ML INJ 250 ML IV SCH (12:24)
[2016-11-25 13:00] VITALS: BP 97/52; PULSE 68; RESP 20; TEMP 95.4; O2SAT 100
[2016-11-25] MEDS ORDERED: AMOXICILLIN/CLAVULANATE K 875 MG TAB PO SCH (13:00)
--- NOTE | 2016-11-25 14:28 | HHI.FF ---
Face to Face Verification Diagnosis: (1) Congestive heart failure (2) Dementia (3) Diabetes (4) History of aortic valve replacement with bioprosthetic valve (5) Anticoagulated on Coumadin Physical Therapy Order: Evaluate and Treat, Improve ambulation, Strength and gait training Occupational Therapy Order: Evaluate and Treat, Improve ADL Speech Therapy Order: To Improve: Swallowing Home Health Nursing Order: Medical education Signs/symptoms of disease process CHF education Nursing assessment with vital signs I have seen patient Farhat Fregoso on 11/25/16. My clinical findings support the need for the requested home health care services because: Ltd mobility - disease progression Patient has SOB Deconditioned w/ increased weakness Med compliance is questionable Limited ability to care for self Impaired cognition/judgement I certify that my clinical findings support that this patient is homebound because: Impaired cognitive ability/safety Unsteady gait/balance Unsafe to leave home unassisted Unable to use public transportation Fabiana Steele PA-C Nov 25, 2016 2:28 pm
[2016-11-25] MEDS ORDERED: AMOX875T2 PO (14:32)
--- NOTE | 2016-11-25 14:47 | HHI.PR ---
Subjective Remarks Follow up for choking, hypoxia, pneumonia. The patient is initially seen without family at bedside, used corporate relations director over the phone. The patient is sleepy but does awaken to answer few questions. Denies any medical complaints. Returned again this afternoon with family at bedside. The family reports the patient is much more talkative today then usual and they feel he is doing much better. They want to take the patient home. Explained PT recommended rehab however the family does not want rehab. They said with his dementia, he does much better at home in his normal environment. They are agreeable to [facility]. Discussed with case management. Objective Vitals Vital Signs Date Time Temp Pulse Resp B/P Pulse Ox O2 Delivery O2 Flow Rate FiO2 11/25/16 13:00 95.4 68 20 97/52 100 11/25/16 11:48 63 11/25/16 07:00 97.3 78 19 150/97 100 11/25/16 01:53 89 18 158/98 94 11/24/16 21:39 85 18 157/93 98 11/24/16 20:40 90 11/24/16 16:20 96.2 75 20 128/64 94 I/O 11/24/16 11/24/16 11/24/16 11/25/16 11/25/16 11/25/16 07:00 15:00 23:00 07:00 15:00 23:00 Intake Total 146 ml Balance 146 ml Intake Oral 20 ml IV Total 126 ml # Voids 2 1 Result Diagram: 11/25/16 0608 11/25/16 0608 Imaging Last Impressions Chest X-Ray 11/23/161953 Signed Impressions: Service Date/Time: Wednesday, November 23, 2016 20:06 - CONCLUSION: Mild left base consolidation and suspected small effusion. Willie Fernandes MD Objective Remarks GENERAL: Well-nourished, well-developed elderly French speaking male patient in [facility]. Drowsy but awakens to voice, answers few questions, then falls back asleep. SKIN: Warm and dry. No rash. HEENT: Normocephalic. Atraumatic. Pupils equal and round. No scleral icterus. No injection or drainage. Mucous membranes pink and moist. NECK: Supple. Trachea midline. CARDIOVASCULAR: Regular rate and rhythm. S1, S2 noted. No murmur appreciated. RESPIRATORY: No accessory muscle use. Clear to auscultation. Breath sounds equal bilaterally. GASTROINTESTINAL: Abdomen soft, non-tender, nondistended. Normoactive bowel sounds x4. MUSCULOSKELETAL: No obvious deformities. Extremities without clubbing, cyanosis , or edema. NEUROLOGICAL: Awake and alert. No obvious cranial nerve deficits. Motor grossly within normal limits. Normal speech. PSYCHIATRIC: Appropriate mood and affect; insight and judgment limited. Medications and IVs Current Medications Medications (Trade) Dose Ordered Sig/Caron Route Start Time Stop Time Status Last Admin (NS Flush) 2 ml UNSCH PRN FLUSH 11/23/16 22:30 11/25/16 00:22 (NS Flush) 2 ml BID FLUSH 11/24/16 09:00 11/25/16 07:56 (Zofran Inj) 4 mg Q6H PRN IVP 11/23/16 22:30 Naloxone HCl 0.4 mg 0.4 mg UNSCH PRN IV 11/23/16 22:30 (D5W-NS 1000 ml Inj) 1,000 ml @ 42 mls/hr [id number] IV 11/24/16 03:30 11/24/16 04:04 (CeleXA) 20 mg DAILY PO 11/24/16 09:00 11/25/16 07:56 (Aricept) 10 mg DAILY PO 11/24/16 09:00 11/25/16 07:56 (Synthroid) 88 mcg DAILY@0600 PO 11/24/16 06:00 11/25/16 06:13 (Namenda) 10 mg BID PO 11/24/16 09:00 11/25/16 07:56 (Lopressor) 25 mg BID PO 11/24/16 09:00 11/25/16 07:56 (risperDAL) 1 mg DAILY PO 11/24/16 09:00 11/25/16 07:56 (Coumadin) 4 mg DAILY@1600 PO 11/24/16 16:00 11/24/16 17:22 (Protonix) 40 mg DAILY PO 11/24/16 09:00 11/25/16 07:56 (D50w (Vial) Inj) 25 ml UNSCH PRN IV PUSH 11/24/16 13:45 Glucagon 1 mg 1 mg UNSCH PRN OTHER 11/24/16 13:45 (Coumadin Consult Pharmacy) 0 ml @ 0 mls/hr UNSCH OTHER 11/24/16 13:45 (Augmentin) 875 mg Q12HR PO 11/25/16 13:00 Urinary Catheter: No Vascular Central Line Catheter: No A/P Assessment and Plan 86yo male with Alzheimer's dementia, DM, hypothyroidism and atrial fibrillation with witnessed choking episode and hypoxia. Choking episode with hypoxia - witnessed while being fed hamburger meatHeimlich maneuver performed by family members, no improvement, called EMS, reported hypoxia with O2 sat 70s in the field, resolved upon arrival. - r/o cardiac etiology, BNP elevated, ACS ruled out with negative cardiac enzymes/EKG x3, Echo with normal EF 50-55%. - swallow evaluation done by ST, recommended pureed diet and thin liquids - PT eval/tx, recommended rehab however patient/family refuses SNF placement, agrees to [facility], discussed with case management Lactic acidosis - resolved, 4.0 -> 1.3 - likely secondary to above, choking/hypoxia episode LISHA - Cr 1.40 -> 1.24 -> 0.91 - resolved Pneumoniawith left pleural effusions. - given IV Rocephin and Azithromycin - change abx to Augmentin 875mg po bid x7days - oxygen supplementation, weaned off oxygen prior to discharge Alzheimer's - continue on current home meds, Namenda and Aricept Chronic anticoagulation on Coumadin with h/o AVR and atrial fibrillation - rate controlled, continue on BB - INR 2.0 - c/w Coumadin - pharmacy consult to monitor Coumadin, PT/INR Diabetes - accuchecks - ISS - Hgb A1c pending Hypothyroidism - c/w home Synthroid dose - TSH level wnl DVT prophylaxison Coumadin. GI prophylaxison pantoprazole. Written by Fabiana Steele, acting as scribe for Dr. Landrum on 11/25/16 at 14: 41. The documentation accurately reflects the work performed [id number] by me, Dr. Landrum on 11/25/16 at 14:41. Discharge Planning Discharge patient to home with [facility] PT/OT/ST/Nursing Condition on discharge: Improved Pureed Diet as tolerated Ad Kamryn activity Rx written: Augmentin 875mg po bid x7days Follow-up with primary care physician within 2-3 days Fabiana Steele PA-C Nov 25, 2016 14:47 Tomy Landrum MD Nov 25, 2016 23:54
[2016-11-25 16:14] LABS: HEMOGLOBIN A1a 1.1 %; HEMOGLOBIN A1b 2.3 %; HEMOGLOBIN Ao 82.5 %; HEMOGLOBIN LA1C 2.4 %; HEMOGLOBIN P3 6.6 %
== END 2016-11-25 15:32 | disposition home or self-care (01) | DRG 194 ==
LOC: NEPE 19:48 → NEDA 21:56 → NEPGCP 11-24 00:06
PROVIDERS: ADMIT Internal Medicine; ATTEND Internal Medicine
DX: J18.9 Pneumonia, unspecified organism (principal); N17.9 Acute kidney failure, unspecified; E87.2 Acidosis; G20 Parkinson's disease; G30.9 Alzheimer's disease, unspecified; T17.920A Food in respiratory tract, part unspecified causing asphyxiation, initial encounter; I50.9 Heart failure, unspecified; F02.80 Dementia in other diseases classified elsewhere, unspecified severity, without behavioral disturbance, psychotic disturbance, mood disturbance, and anxiety; I48.91 Unspecified atrial fibrillation; E03.9 Hypothyroidism, unspecified; Y92.009 Unspecified place in unspecified non-institutional (private) residence as the place of occurrence of the external cause; Y93.89 Activity, other specified; X58.XXXA Exposure to other specified factors, initial encounter; E11.9 Type 2 diabetes mellitus without complications; Z79.01 Long term (current) use of anticoagulants; Z95.1 Presence of aortocoronary bypass graft
CPT/HCPCS: 36600; 71010; 80048; 80053; 82550; 82607; 82728; 82805; 82948; 83036; 83540; 83550; 83605; 83735; 83880; 84443; 84484; 85025; 85610; 85730; 87040; 93005; 93306; 96365; J0456; J0696; J1650; J1940; J7042; J7050